=== PATIENT | male | born 1945 | race Caucasian/White ===

== ENCOUNTER 2016-12-28 09:33 | Day surgery (SDC) | payer OTHER ==
[~2016-12-28] VITALS: Ht 167.6 cm; Wt 72.6 kg
[2016-12-28 10:20] VITALS: Ht 167.6 cm; Wt 72.6 kg
[2016-12-28] MEDS ORDERED: ATORVASTATIN (10:35)
[2016-12-28] MEDS ORDERED: LEVOTHYROXINE (10:35)
[2016-12-28] MEDS ORDERED: PRENATAL TABLET (10:35)
[2016-12-28] MEDS ORDERED: METFORMIN (10:35)
[2016-12-28] MEDS ORDERED: HYDROCODON (10:35)
[2016-12-28] MEDS ORDERED: ATRIPLA (10:35)
[2016-12-28] MEDS ORDERED: TAMSULOSIN (10:35)
[2016-12-28] MEDS ORDERED: OMEPRAZOLE (10:35)
[2016-12-28] MEDS ORDERED: GABAPENTIN (10:35)
[2016-12-28 10:41] VITALS: BP 149/72; PULSE 60; RESP 27
[2016-12-28] MEDS ORDERED: LIDOCAINE 2% (SDV) 5 ML INJ ONE (11:23)
[2016-12-28] MEDS ORDERED: NEOSTIGMINE 3 MG/3 ML SYRINGE ONE (11:23)
[2016-12-28] MEDS ORDERED: PROPOFOL 40 ML ONE ×2 (11:23→11:24)
[2016-12-28] MEDS ORDERED: MIDAZOLAM 1 MG/ML 2 ML INJ ONE (11:23)
[2016-12-28] MEDS ORDERED: GLYCOPYRROLATE 0.4 MG INJ ONE (11:23)
[2016-12-28] MEDS ORDERED: LIDOCAINE 100 MG SYRINGE ONE (11:24)
[2016-12-28 11:48] VITALS: BP 147/77; PULSE 67; RESP 24
--- NOTE | 2016-12-28 13:51 | GILP ---
DATE OF PROCEDURE: PROCEDURE PERFORMED: Colonoscopy. INDICATION: A 71-year-old male undergoing this procedure for colon cancer screening. The risks of the procedure, related and unrelated complications, anesthetic risks, alternatives discussed, and in formed consent was obtained. DESCRIPTION OF PROCEDURE: The patient was brought to the GI lab, sedated by Dr. Adamson. After opti mum sedation, the scope was passed with much ease into the rectum and advanced to severe diverticulo sis in the sigmoid, descending colon all the way into cecum. Appendiceal orifice and IC valve ident ified. The cecum and ascending colon were covered with a thin layer of stool. The rest of the colo n appeared normal. No growth, no polyps seen. He had small hemorrhoids. IMPRESSION: 1. Normal findings all the way into cecum except for severe diverticulosis on the left side of the colon. 2. Preparation was good on the left side and in the transverse colon and adequate on the right side of the colon. 3. Hemorrhoids. PLAN: Stay on high-fiber diet. Dictated By: BERNARDO CALLE/VALARIE Conf#: [id number] DID#: [id number] CC: ;*EndCC*
== END 2016-12-28 16:54 | disposition home or self-care (01) ==
LOC: GIL 09:33
PROVIDERS: ATTEND Internal Medicine Gastroenterology
DX: Z12.11 Encounter for screening for malignant neoplasm of colon (principal); K64.8 Other hemorrhoids; E11.9 Type 2 diabetes mellitus without complications; E03.9 Hypothyroidism, unspecified
CPT/HCPCS: 45378; 82962; J2001; J2710; J2250